=== PATIENT | female | born 1980 | race Caucasian/White ===

== ENCOUNTER → 2020-05-20 | Day surgery (SDC) | payer OTHER ==
--- OUTSIDE RECORDS SUMMARY | 2020-05-20 09:53 | XMS REPORT | Clinical Summary ---
:1980 Author Organization [facility] Address [address] [place] [id number] Care Team Providers Name Role Phone Asked, No Pcp Primary Care Provider Unavailable Allergies No Known Allergies Medications Medication Sig Dispensed Refills Start Date End Date Status propranoloL (INDERAL) Take 10 mg by 0 Active 10 MG tablet mouth 2 (two) times a day. IBUPROFEN ORAL Take by mouth 0 A ctive daily. frovatriptan (FROVA) Take 2.5 mg by 0 Active 2.5 MG tablet mouth once as needed for migraine. May repeat in 2 hours if unresolved. Do not exceed 7.5 mg in 24 hours. norethindrone-e.estradi Take by mouth 0 Active ol-iron (LO LOESTRIN FE daily. ORAL) sertraline (ZOLOFT) 50 Take 50 mg by 0 Active MG tablet mouth nightly. fexofenadine HCl Take by mouth 0 Active (BENEDICT ORAL) daily. Active Problems Not on file Encounters Date Type Specialty Care Team Description 01/13/2020 Telephone Sol Yuan RN 01/06/[address], [place] nspecified lump in the MD left breast, un specified quadrant 01/06/[address], [place]iry[place] nspecified lump in the MD left breast, un specified quadrant 01/06/2020 Travel 12/30/2019 Telephone Sol Yuan RN 12/27/[address] MD 12/27/[address] MD 12/27/[address] MD 12/27/[address] MD 12/27/[address] MD 12/27/[address] MD 12/27/2019 Hospital Encounter Radiology Neil Jones MD 12/26/2019 Travel 12/26/[address], Un specified lump in the MD left breast, un specified quadrant (Prima ry Dx) 12/26/[address] MD after 05/20/2019 Social History Tobacco Use Types Packs/Day Years Used Date Never Assessed Sex Assigned at Date Recorded Not on file Job Start Date Occupation Industry Not on file Not on file Not on file Travel History Travel Start Travel End No recent travel history available. Last Filed Vital Signs Not on file Plan of Treatment Health Maintenance Due Date Last Done Comments CERVICAL CANCER SCREENING 1999 INFLUENZA VACCINE 06/25/2020 Procedures Procedure Name Priority Date/Time Associated Diagnosis Comme nts SURGICAL PATHOLOGY Routine 01/06/2020 12:28 Resul ts for this REQUEST PM CDT procedure are i n the results section. MAMMO DIAGNOSTIC W Routine 01/06/2020 11:42 Unspecified lump i n Results for this CAD LEFT AM CDT the left breast, procedure a re in unspecified quadrant the res ults section. US BREAST BIOPSY Routine 01/06/2020 11:31 Unspecified lump in Results for this LEFT AM CDT the left breast, procedure a re in unspecified quadrant the res ults section. MAMMO EXTERNAL STUDY Routine 12/12/2019 8:15 Res ults for this AM CDT procedure are i n the results section. US BREAST EXTERNAL Routine 12/12/2019 8:12 Resul ts for this STUDY AM CDT procedure are i n the results section. MAMMO EXTERNAL STUDY Routine 06/04/2019 8:14 Res ults for this AM CDT procedure are i n the results section. US BREAST EXTERNAL Routine 06/04/2019 8:11 Resul ts for this STUDY AM CDT procedure are i n the results section. after 05/20/2019 Results Surgical pathology request (01/06/2020 12:28 PM CDT) [facility]OMIC MEDIC[facility] Surgical pathology See link below [facility] OF report for PDF Lab PATHOLOGY AND Report GENOMIC MEDICINE Result status This is Final [facility] OF Report for PATHOLOGY AND [id number] GENOMIC MEDICINE Specimen Performing Organization Address City/State/Zipcode Phone Number [facility] DEPARTMENT OF PATHOLOGY AND [address], [place] [address] GENOMIC MEDICINE Mammo Diagnostic w Cad Left (01/06/2020 11:42 AM CDT) Specimen Addenda Addendum by Khadar Dykes MD on 0 01/13/2020 1:49 PM ADDENDUM #1 Addendum report for pathology. 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 See pathology report of Dr. Elijah jay M.D. 01/07/2020. IMPRESSION: Benign findings. Annual mamm ography recommended Narrative Performed At PROCEDURE: Left ultrasound-guided biopsy . Left post procedure mammogram. [facility] US BREAST BIOPSY LEFT, MAMMO DIAGNOSTIC W CAD LEFT CLINICAL HISTORY: 39-year-old female with palpable mas s in the left breast. The patient came in for ultrasound-guided core biopsy/ biopsies of the left breast as previously recommended. The patient was rescanned with left breast ultrasound. CONSENT: Informed consent for ultrasound guided core needle bio psy/biopsies of the left breast was obtained following a detailed disc ussion of the procedure, alternatives, risks, and complications incl uding hemorrhage, infection, and clip migration. PROCEDURE: After a confirmatory pause for the biopsy team and aft er obtaining informed consent, approximately 3 core samples were ob tained through a single skin incision and a ribbon clip was deployed ma rking the biopsy site. A vacuum-assisted needle was utili zed under ultrasound guidance. The core samples obtained w ere sent to pathology. Postprocedure mammogram obtained, not for diagnostic p urposes but for clip identification, confirmed clip deployment and min imal postbiopsy changes. The patient tolerated the procedure and left the depar tment in stable condition. Histology is pending. IMPRESSION: Ultrasound guided core needle biopsy/biopsies of the l eft breast are complete. Final pathology report is pe nding. Addendum will follow. [id number] Dictated and approved by radiology resid ent/fellow: Oskar Morelos M.D. I, Khadar Dykes MD, personally reviewed the images and resident's/fellow's findings and agree with the final report. Procedure Note Interface, Radiology Results Incoming - 01/06/2020 12:35 PM CDT PROCEDURE: Left ultrasound-guided biopsy. Left post procedure mammogram. US BREAST BIOPSY LEFT, MAMMO DIAGNOSTIC W CAD LEFT CLINICAL HISTORY: 39-year-old female wit h palpable mass in the left breast. The patient came in for ultrasound-guide d core biopsy/biopsies of the left breast as previously recommended. The patient was rescanned with left breast ultrasound. CONSENT: Informed consent for ultrasound guided c ore needle biopsy/biopsies of the left breast was obtained following a detailed discussion of the procedure, alternatives, risks, and complications including hemorrhage, infection, and clip migration. PROCEDURE: After a confirmatory pause for the biops y team and after obtaining informed consent, approximately 3 core samples were obtained through a single skin incision and a ribbon clip was deployed marking the biopsy site. A vacuum-assisted needle was utili zed under ultrasound guidance. The core samp les obtained were sent to pathology. Postprocedure mammogram obtained, not fo r diagnostic purposes but for clip identification, confirmed clip deployment and minimal postbiopsy changes. The patient tolerated the procedure and left the department in stable condition. Histology is pending. IMPRESSION: Ultrasound guided core needle biopsy/bio psies of the left breast are complete. Final pathology report is pending. Addendum will follow. [id number] Dictated and approved by radiology resid ent/fellow: Oskar Morelos M.D. I, Khadar Dykes MD, personally reviewed t he images and resident's/fellow's findings and agree with the final report. Performing Organization Address City/State/Zipcode Phone Number [facility] [address] [place] [address] US Breast Biopsy Left (01/06/2020 11:31 AM CDT) Specimen Addenda Addendum by Khadar Dykes MD on 0 01/13/2020 1:49 PM ADDENDUM #1 Addendum report for pathology. 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 See pathology report of Dr. Elijah jay M.D. 01/07/2020. IMPRESSION: Benign findings. Annual mamm ography recommended Narrative Performed At PROCEDURE: Left ultrasound-guided biopsy . Left post procedure mammogram. [facility] US BREAST BIOPSY LEFT, MAMMO DIAGNOSTIC W CAD LEFT CLINICAL HISTORY: 39-year-old female with palpable mas s in the left breast. The patient came in for ultrasound-guided core biopsy/ biopsies of the left breast as previously recommended. The patient was rescanned with left breast ultrasound. CONSENT: Informed consent for ultrasound guided core needle bio psy/biopsies of the left breast was obtained following a detailed disc ussion of the procedure, alternatives, risks, and complications incl uding hemorrhage, infection, and clip migration. PROCEDURE: After a confirmatory pause for the biopsy team and aft er obtaining informed consent, approximately 3 core samples were ob tained through a single skin incision and a ribbon clip was deployed ma rking the biopsy site. A vacuum-assisted needle was utili zed under ultrasound guidance. The core samples obtained w ere sent to pathology. Postprocedure mammogram obtained, not for diagnostic p urposes but for clip identification, confirmed clip deployment and min imal postbiopsy changes. The patient tolerated the procedure and left the depar tment in stable condition. Histology is pending. IMPRESSION: Ultrasound guided core needle biopsy/biopsies of the l eft breast are complete. Final pathology report is carmen castroing. Addendum will follow. [id number] Dictated and approved by radiology resid ent/fellow: Oskar Morelos M.D. I, Khadar Dykes MD, personally reviewed the images and resident's/fellow's findings and agree with the final report. Procedure Note [facility], Radiology Results Incoming - 01/06/2020 12:35 PM CDT PROCEDURE: Left ultrasound-guided biopsy. Left post procedure mammogram. US BREAST BIOPSY LEFT, MAMMO DIAGNOSTIC W CAD LEFT CLINICAL HISTORY: 39-year-old female wit h palpable mass in the left breast. The patient came in for ultrasound-guide d core biopsy/biopsies of the left breast as previously recommended. The patient was rescanned with left breast ultrasound. CONSENT: Informed consent for ultrasound guided c ore needle biopsy/biopsies of the left breast was obtained following a detailed discussion of the procedure, alternatives, risks, and complications including hemorrhage, infection, and clip migration. PROCEDURE: After a confirmatory pause for the biops y team and after obtaining informed consent, approximately 3 core samples were obtained through a single skin incision and a ribbon clip was deployed marking the biopsy site. A vacuum-assisted needle was utili zed under ultrasound guidance. The core samp les obtained were sent to pathology. Postprocedure mammogram obtained, not fo r diagnostic purposes but for clip identification, confirmed clip deployment and minimal postbiopsy changes. The patient tolerated the procedure and left the department in stable condition. Histology is pending. IMPRESSION: Ultrasound guided core needle biopsy/bio psies of the left breast are complete. Final pathology report is pending. Addendum will follow. [id number] Dictated and approved by radiology resid ent/fellow: Oskar Morelos M.D. I, Khadar Dykes MD, personally reviewed t he images and resident's/fellow's findings and agree with the final report. Performing Organization Address City/State/Zipcode Phone Number [facility] [address] [place] [address] Mammo External Study (12/12/2019 8:15 AM CDT)Only the most recent of2 results within the time period is included. Specimen Narrative Performed At This exam was not acquired at a [facility] facility and has not been [facility] interpreted by a [facility] Provider. T he exam was imported into our imaging system. Performing Organization Address [facility] Phone Number [facility] [address] [place] [address] US Breast External Study (12/12/2019 8:12 AM CDT)Only the most recent of2 resultswithin the time period is included. Specimen Narrative Performed At This exam was not acquired at a [facility] facility and has not been [facility] interpreted by a [facility] Provider. T he exam was imported into our imaging system. 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
--- OUTSIDE RECORDS SUMMARY | 2020-05-20 09:53 | XMS REPORT | Continuity of Care Document ---
:1980 Author Organization [facility] Address [address] [place] [address] Care Team Providers Name Role Phone Asked, Pcp Primary Care Physician Unavailable Digna PANG Attending Clinician Unavailable Karen RUSSELL, P. Attending Clinician Payers Payer Name Policy Type Policy Number Effective Date Expiration Date S sana AETNAAETNA xxxxxxxxxx 2012 [place] HMO,POS,EPO, 00:00:00 [employer] [id number]/[id number] 2011-Presen tHMO Problems This patient has no known problems. Allergies, Adverse Reactions, Alerts This patient has no known allergies or adverse reactions. Social History Social Habit Start Date Stop Date Quantity Comments Source Sex Assigned At Georgiana Martinez Medications Ordered Filled Start Stop Current Ordering Indication Dosage Frequency Signature Comments Components Source Medication Medication Date Date Medication? Clinician (SIG) Name Name frovatripta 2020-0 Yes 2.5mg Take 2.5 [place] (FROVA) 4-06 mg by [facility] 2.5 MG 12:16: mouth once st tablet 18 as needed for migraine. May repeat in 2 hours if unresolved . Do not exceed 7.5 mg in 24 hours. norethindro 2020-0 Yes QD Take by Georgiana pinto ne-e.estrad 4-06 mouth [facility] iol-iron 12:16: daily. st (LO 18 LOESTRIN FE ORAL) sertraline 2020-0 Yes 50mg QD Take 50 mg [place] (ZOLOFT) 50 4-06 by mouth Meth elizabeth MG tablet 12:16: nightly. st 18 fexofenadin 2020-0 Yes QD Take by Georgiana ston e HCl 4-06 mouth [facility] (BENEDICT 12:16: daily. st ORAL) 18 propranoloL 2020-0 Yes 10mg Q.5D Take 10 mg [place] (INDERAL) 4-06 by mouth 2 Meth elizabeth 10 MG 09:38: (two) st tablet 04 times a day. IBUPROFEN 2020-0 Yes QD Take by Cullen on ORAL 4-06 mouth [facility] 09:37: daily. st 18 Procedures Procedure Date / Time Performed Performing Clinician [facility] SURGICAL PATHOLOGY 2020-01-06 12:28:00 Neil Jones on [facility] REQUEST MAMMO DIAGNOSTIC W CAD 2020-01-06 11:42:35 Neil Jonesston [facility] LEFT US BREAST BIOPSY LEFT 2020-01-06 11:31:29 Neil Jones MAMMO EXTERNAL STUDY 2019-12-12 08:15:26 Neil Jones US BREAST EXTERNAL STUDY 2019-12-12 08:12:30 Neil Jones MAMMO EXTERNAL STUDY 2019-06-04 08:14:18 Neil Jones US BREAST EXTERNAL STUDY 2019-06-04 08:11:52 Neil Jones Plan of Care Planned Activity Planned Date Details Comments Source Future Scheduled 2020-06-25 INFLUENZA VACCINE Khris n [facility] Test 00:00:00 [code = INFLUENZA VACCINE] Future Scheduled 1999 Screening for [facility] Test 00:00:00 malignant neoplasm of cervix (procedure) [code = 190236945] Encounters Start End Encounter Admission Attending Care Care Encounter Source Date/Time Date/Time Type Type Clinicians Facility Department ID 2020-01-06 2020-01-06 Outpatient [facility] [id number] [place] 00:00:00 00:00:00 NEIL [address] 2020-01-06 2020-01-06 Outpatient [facility] [id number] [place] 00:00:00 00:00:00 NEIL [address] 2019-12-27 2019-12-27 Outpatient [facility] [id number] [place] 00:00:00 00:00:00 NEIL [address] 2019-12-27 2019-12-27 Outpatient [facility] [id number] [place] 00:00:00 00:00:00 NEIL [address] 2019-12-27 2019-12-27 Outpatient [facility] [id number] [place] 00:00:00 00:00:00 NEIL [address] 2019-12-27 2019-12-27 Outpatient [facility], [facility] [id number] [place] 00:00:00 00:00:00 NEIL [address] 2019-12-27 2019-12-27 Outpatient [facility], [facility] [id number] [place] 00:00:00 00:00:00 NEIL [address] 2019-12-27 2019-12-27 Outpatient COSELLI, [facility] [id number] [place] 00:00:00 00:00:00 NEIL [address] 2019-12-27 2019-12-27 Outpatient [facility], [facility] [id number] [place] 00:00:00 00:00:00 NEIL [address] Results Test Description Test Time Test Comments Results Result Comments Source Surgical pathology request 2020-01-07 08:29:52 Test Item Value Reference Range Interpretation Comme nts Case number (test code = 4111065) [id number] Surgical pathology report (test code = See link below for PDF Lab R eport 2253) Result status (test code = 4014919) This is Final Report for [id number] [place] [facility] Breast Biopsy [id number] 12:32:52Addendum by Khadar Dykes MD on 01/13/2020 1:49 PM ADDENDUM #1 Addendum report for pathology.Ultrasound-guided biopsy left breast mass revealed myxoid fibroadenoma. See pathology report of Dr. Elijah Clifford M.D. 01/07/2020. IMPRESSION: Benign findings. [facility]commended[facility] Results 01/06/2020 12:35 PM CDTPROCEDURE: Left ultrasound- guided biopsy. Left post procedure mammogram.US BREAST BIOPSY LEFT, MAMMO DIAGNOSTIC W CAD LEFTCLINICAL HISTORY: 39-year-old female with palpable mass in the left breast.The patient came in for ultrasound-guided core biopsy/biopsies of the left breast as previously recommended. The patient was rescanned with left breast ultrasound.CONSENT: Informed consent for ultrasound guided core needle biopsy/biopsies of the left breast was obtained following a detailed discussion of the procedure, alternatives, risks, and complications including hemorrhage, infection, and clip migration.PROCEDURE:After a confirmatory pause for the biopsy team and after obtaining informed consent, approximately 3 core samples were obtained through a single skin incision and a ribbon clip was deployed marking the biopsy site. A vacuum-assisted needle was utilized under ultrasound guidance. The core samples obtained were sent to pathology. Postprocedure mammogram obtained, not for diagnostic purposes but for clip identification, confirmed clip deployment and minimal postbiopsy changes. The patient tolerated the procedure and left the department in stable condition.Histology is pending. IMPRESSION:Ultrasound guided core needle biopsy/biopsies of the left breast are complete. Final pathology report is pending. Addendum will follow. [id number] and approved by compliance vice president/fellow: Santiago Corrigan, Khadar Dykes MD, personally reviewed the images and resident's/fellow's findings and agree with the final report.[place] [facility]ismNjmmo Diagnostic w Cad [id number] 12:32:52Addendum by Khadar Dykes MD on 01/13/2020 1:49 PM ADDENDUM #1 Addendum report for pathology.Ultrasound-guided biopsy left breast mass revealed myxoid fibroadenoma. See pathology report of Dr. Elijah Clifford M.D. 01/07/2020. IMPRESSION: Benign findings. [facility] Results Incoming - 01/06/2020 12:35 PM CDTPROCEDURE: Left ultrasound- guided biopsy. Left post procedure mammogram.US BREAST BIOPSY LEFT, MAMMO DIAGNOSTIC W CAD LEFTCLINICAL HISTORY: 39-year-old female with palpable mass in the left breast.The patient came in for ultrasound-guided core biopsy/biopsies of the left breast as previously recommended. The patient was rescanned with left breast ultrasound.CONSENT: Informed consent for ultrasound guided core needle biopsy/biopsies of the left breast was obtained following a detailed discussion of the procedure, alternatives, risks, and complications including hemorrhage, infection, and clip migration.PROCEDURE:After a confirmatory pause for the biopsy team and after obtaining informed consent, approximately 3 core samples were obtained through a single skin incision and a ribbon clip was deployed marking the biopsy site. A vacuum-assisted needle was utilized under ultrasound guidance. The core samples obtained were sent to pathology. Postprocedure mammogram obtained, not for diagnostic purposes but for clip identification, confirmed clip deployment and minimal postbiopsy changes. The patient tolerated the procedure and left the department in stable condition.Histology is pending. IMPRESSION:Ultrasound guided core needle biopsy/biopsies of the left breast are complete. Final pathology report is pending. Addendum will follow. [facility]-[id number] and approved by compliance vice president/fellow: Santiago Corrigan, Khadar Dykes MD, personally reviewed the images and resident's/fellow's findings and agree with the final report.[place] [facility] External [id number] 08:15:44This exam was not acquired at a [facility] facility and has not been interpreted by a [facility] Provider. The exam was imported into our imaging system.[place] [facility] Breast External [id number] 08:12:47This exam was not acquired at a [facility] facility and has not been interpreted by a [facility] Provider. The exam was imported into our imaging system.[place] [facility]
--- NOTE | 2020-05-20 10:48 | RAD REPORT ---
EXAM DESCRIPTION: US - Guided FNA Non Breast - 05/20/2020 10:11 am CLINICAL HISTORY: E03.9 COMPARISON: Thyroid Para Parotid Gland dated 05/11/2020 TECHNIQUE: Patient presents for ultrasound-guided fine-needle aspiration of a 15-17 mm mixed solid a nd cystic nodule in the right lobe. The procedure, risks and alternatives were discussed with the patient in detail. After answering all questions, both oral and written consent were obtained. Patient had no contraindicated allergy or med ication history. Preliminary imaging again identified the mass. The anterior neck was prepped and draped in the usual sterile fashion. Anterolateral access site was selected. Skin and deeper tissues were anesthetized wi th 1% lidocaine under sonographic visualization. Under direct sonographic visualization a 25 gauge needle was passed into the nodule. Multiple to and fro excursions of the needle tip performed. Patient underwent 3 additional ultrasound-guided fine-nee dle aspirations using sonographic guidance. At the conclusion of the procedure there was no identifiable hematoma. Hemostasis was obtained at the puncture site. Sterile bandage was placed to the puncture site. Postprocedure care and precaution in structions were given to the patient. All aspirate material was given to pathology for cytology assessment. IMPRESSION: Successful ultrasound-guided fine-needle aspiration of the dominant 15-17 mm right lobe thyroid nodule.
== END ==
LOC: FNA 09:01
PROVIDERS: ATTEND Otolaryngology
PROC: 0GBH3ZX Excision of Right Thyroid Gland Lobe, Percutaneous Approach, Diagnostic (ICD-10-PCS; principal; 2020-05-20)
PROC: BG44ZZZ Ultrasonography of Thyroid Gland (ICD-10-PCS; 2020-05-20)
DX: E04.2 Nontoxic multinodular goiter (principal); E03.9 Hypothyroidism, unspecified
CPT/HCPCS: 88162

== ENCOUNTER 2021-06-04 07:30 | Day surgery (SDC) | payer OTHER ==
--- NOTE | 2021-06-02 11:29 | EKG ---
Test Date: 2021-06-01 Test Time: 13:36:38 Shirrer: GUZMAN MEASUREMENT RESULTS: Intervals: Rate: 73 MD: 144 QRSD: 108 QT: 394 QTc: 434 [place]: P: 51 MD: 144 QRS: 84 T: 49 INTERPRETIVE STATEMENTS: Normal sinus rhythm Normal ECG No previous ECG available for comparison Electronically Signed On 06-02-21 11:26:50 CDT by Henrry Gloria
[2021-06-04 08:00] LABS: Specific Gravity 1.015 (1.005-1.030)
[2021-06-04] MEDS ORDERED: Ringers Lactate 1,000 ML IV ONE (08:19)
[2021-06-04] MEDS ORDERED: CELECOXIB 100 MG CAPSULE ONE (08:34)
[2021-06-04] MEDS ORDERED: ACETAMINOPHEN 500 MG TAB ONE (08:36)
[2021-06-04] MEDS ORDERED: LIDOCAINE 1% W/EPI 1:100,000 10 ML VIAL ONE (08:44)
[2021-06-04] MEDS ORDERED: LIDOCAINE 1% MPF 5 ML VIAL ONE (09:06)
[2021-06-04] MEDS ORDERED: dexAMETHasone 10 MG/ML VIAL ONE (09:06)
[2021-06-04] MEDS ORDERED: FENTANYL CITR 250 MCG/5 ML ONE (09:06)
[2021-06-04] MEDS ORDERED: MIDAZOLAM HCL 2 MG/2 ML INJ ONE (09:06)
[2021-06-04] MEDS ORDERED: propofoL 200 MG/20 ML VIAL IV ONE (09:06)
[2021-06-04] MEDS ORDERED: ROCURONIUM 50 MG/5 ML VIAL IV ONE (09:08)
[2021-06-04] MEDS ORDERED: ONDANSETRON 4 MG/2 ML VIAL ONE (09:08)
--- NOTE | 2021-06-04 10:37 | P.BOP ---
Preoperative diagnosis: right thyroid nodule, dysphagia Postoperative diagnosis: same Primary procedure: right magnus thyroidectomy Vice President Of Manufacturing: Shraddha Cameron Estimated blood loss: 10ml Specimen: right thyroid Findings: inferior cystic appearing nodule, small yellow posterior nodule Anesthesia: General Complications: None Drain(s): MARLA drain Fluids & blood products: 800ml crystalloid Transferred to: Recovery Room Condition: Good
[2021-06-04] MEDS ORDERED: Mastisol Adhesive Liq ONE (10:41)
[2021-06-04] MEDS ORDERED: KETOROLAC 30 MG/ML INJ ONE (10:42)
[2021-06-04] MEDS: MEPERIDINE HCL 25 MG/ML SYR ONE ×2 (10:48→10:56)
[2021-06-04] MEDS ORDERED: HYDROMORPHONE HCL 1 MG/ML INJ ONE (11:27)
[2021-06-04] MEDS: ACETAMINOPHEN 325 MG TABLET ONE ×2 (11:45→12:15)
--- NOTE | 2021-06-04 12:04 | OP ---
Surgeon: Priscilla Camara MD Spray Unit Feeder: Shraddha Knapp. Preoperative Diagnosis: Right thyroid nodule with dysphagia and compressive symptoms. Postoperative Diagnosis: Right thyroid nodule with dysphagia and compressive symptoms. Procedure: Right hemithyroidectomy. Indication For Procedure: Meka presented with complaints of dysphagia and a right thyroid nodule whi ch had been previously biopsied and was benign. The left thyroid did not have any significant nodule s on ultrasound and was not significantly enlarged and therefore recommendation was made for right he mithyroidectomy. The risks, benefits, and alternatives to surgery were discussed with the patient wh o agreed to proceed. Description Of Procedure In Detail: The patient was brought to the operating room. She was placed u nder general anesthesia via an oral endotracheal tube. A shoulder roll was placed. The neck was ext ended and head supported. The planned incision site was injected with 3 mL of 1% lidocaine with epin ephrine. The neck was then prepped with Betadine and draped in a standard fashion for thyroid surger y. A 4 cm incision was made through the skin and subcutaneous tissues. Bovie electrocautery was the n used to control bleeding at the skin edges, divide the subcutaneous fat and platysma, and raised skelton bplatysmal flaps inferiorly and posteriorly. Overlying the midline, there was a large anterior jugul ar vessel. The right side was carefully dissected and the vein was retracted laterally without divis ion. The midline of the strap muscles was then identified and divided using the LigaSure. The strap muscles were elevated using blunt dissection and LigaSure from the anterior surface of the thyroid. A large cystic-appearing thyroid mass encompassed most of the inferior pole. The surrounding vascul ar and soft tissue attachments were carefully dissected and divided using the LigaSure and dissection was carried up along the lateral aspect of the thyroid. The fascia overlying the carotid was easily visualized and easily bluntly dissected away from the thyroid tissue. The muscles were elevated and retracted superiorly allowing visualization of the superior pole. Judicious dissection was carried out around the superior pole and the vascular attachments were divided using the LigaSure. Dissectio n continued along the deep aspect with rotation of the thyroid medially. The thyroid was then divide d along the isthmus and the medial aspect was elevated and dissected from the wall of the trachea. T he final attachment in the area of Solorio ligament was judiciously dissected with visualization of the recurrent laryngeal nerve near its point of insertion. Very careful dissection around this area was taken. The parathyroid gland was noted and judiciously dissected away from the capsule of the thyro id and left in place with its vascular attachments apparently intact by visual inspection. The final soft tissue attachments were then divided, leaving a small remnant of thyroid tissue along the trach eal wall in the area of Solorio ligament. The decision to leave the thyroid in place was made due to t he benign nature of the patient's disease and desire to avoid undue bleeding or injury to the recurre nt laryngeal nerve. A gauze packing was placed within the surgical bed for several minutes. After r emoval, the bed was inspected and irrigated using sterile saline. Following a Valsalva, there was no evidence of any bleeding or tracheal injury. A 10-[place] round MARLA drain was placed through the late ral portion of the skin flap and secured using a 3-0 nylon suture. The drain was then placed within the surgical bed. The strap muscles were approximated in the midline with a single Vicryl suture. T he platysmal flaps were then reapproximated using interrupted buried Vicryl sutures. The skin was cl osed in a subcuticular fashion using Monocryl. The wound was then dressed with Mastisol and Steri-St rips. The drain was attached to the bulb and placed on suction. The patient was returned to care of Anesthesia for awakening and extubation in the operating room, which proceeded without difficulty. Complications: None. Disposition: The patient will be transferred to the recovery room, and if doing well without any imm ediate postoperative complications, she will be discharged to home later today. Due to the nature of her surgery involving only unilateral thyroid removal, no PTH monitoring is deemed necessary. The patient will follow up with Dr. Camara on Monday for removal of her drain and further surgical care. CEDRIC/LATISHA Voice ID: [id number] Report ID: [id number]
[2021-06-04 12:20] VITALS: BP 154/74; TEMP 97.4; O2SAT 97
== END 2021-06-04 12:15 | disposition home or self-care (01) ==
LOC: PRE 07:30
PROVIDERS: ATTEND Otolaryngology
PROC: 0GBJ0ZZ Excision of Thyroid Gland Isthmus, Open Approach (ICD-10-PCS; 2021-06-04)
PROC: 0GTH0ZZ Resection of Right Thyroid Gland Lobe, Open Approach (ICD-10-PCS; principal; 2021-06-04 08:30)
DX: E04.1 Nontoxic single thyroid nodule (principal); R13.10 Dysphagia, unspecified; Z20.822 Contact with and (suspected) exposure to COVID-19
CPT/HCPCS: 93005; 81025; 88307; 60225; U0003; J2704; J2250; J3010; J1100; J2175; J1170; J7120; J2405; 88305